=== PATIENT | male | born 1950 | race Caucasian/White ===

== ENCOUNTER 2016-11-01 10:53 | Emergency (ER) | payer SELFPAY | END 2016-11-01 15:47 | disposition left against medical advice (07) | LOC: EDBD 10:53 → D.ER 10:53 → D.ICU 14:20 → D.ER 14:20 | DX: R56.9 Unspecified convulsions (principal); I45.10 Unspecified right bundle-branch block; I44.60 Unspecified fascicular block ==

== ENCOUNTER 2017-11-16 11:05 | Emergency (ER) | payer SELFPAY ==
[~2017-11-16] VITALS: Ht 188 cm; Wt 122.7 kg
[2017-11-16 11:08] VITALS: Ht 188 cm; Wt 122.7 kg
[2017-11-16] MEDS ORDERED: LEVOTHYROXINE75 MCG PO (11:22)
[2017-11-16] MEDS ORDERED: CELEXA20 MG PO (11:24)
[2017-11-16] MEDS ORDERED: NIFEDIPINE ER 60 MG PO (11:24)
[2017-11-16] MEDS ORDERED: EPITOL200 MG PO (11:24)
[2017-11-16] MEDS ORDERED: K-DUR20 MEQ PO (11:24)
[2017-11-16] MEDS ORDERED: FUROSEMIDE40 MG PO (11:25)
[2017-11-16] MEDS ORDERED: METOPROLOL TART25 MG PO (11:25)
[2017-11-16] MEDS ORDERED: PRINIVIL20 MG PO (11:25)
[2017-11-16] MEDS ORDERED: KLONOPIN1 MG PO (11:26)
[2017-11-16] MEDS ORDERED: NIFEDIPINE60 MG/BOTT PO (11:26)
[2017-11-16] MEDS ORDERED: CALCIUM 250+D T1 TAB PO (11:27)
[2017-11-16 11:52] LABS: BASOPHILS 0.3 % (0-2); EOSINOPHILS 0.5 % (0-7); HEMATOCRIT 44.3 % (42.0-54.0); HEMOGLOBIN 14.9 g/dL (13.5-17.5); IMMATURE GRANULOCYTES 0.3 % (0-5); LYMPHOCYTES 3.5 % (15-50); MCH 31.2 pg (26.0-34.0); MCHC 33.6 g/dL (31.0-37.0); MCV 92.7 fL (80.0-100.0); MEAN PLATELET VOLUME 10.8 fL (7.4-10.4); MONOCYTES 7.1 % (2-11); NEUTROPHILS 88.3 % (40-80); PLATELET COUNT 205 10x3/uL (130-400); RBC 4.78 10x6/uL (4.20-6.10); RDW 14.3 % (11.5-14.5); WBC 12.6 10x3/uL (4.8-10.8)
[2017-11-16 12:07] LABS: ALBUMIN 3.1 g/dL (3.4-5.0); ANION GAP 19.7 mmol/L (8-16); BILIRUBIN - TOTAL 0.27 mg/dL (0.2-1.3); CALCIUM 9.1 mg/dL (8.5-10.1); CARBAMAZEPINE (TEGRETOL) 3.5 ug/mL (4.0-12.0); CARBON DIOXIDE 18.7 mmol/L (21.0-32.0); MAGNESIUM - SERUM 2.2 mg/dL (1.8-2.4); POTASSIUM - SERUM 3.4 mmol/L (3.5-5.1); PROTEIN - SERUM 6.2 g/dL (6.4-8.2)
[2017-11-16 12:15] LABS: APPEARANCE CLEAR (CLEAR); BILIRUBIN NEGATIVE (NEGATIVE); COLOR YELLOW (YELLOW); EPITHELIAL CELLS OCC /hpf (0-5); GLUCOSE NEGATIVE (NEGATIVE); KETONE NEGATIVE (NEGATIVE); NITRITE NEGATIVE (NEGATIVE); PROTEIN NEGATIVE (NEGATIVE); RED CELLS - URINE OCC /hpf (0-5); UROBILINOGEN NORMAL (NORMAL); WHITE CELLS - URINE OCC /hpf (0-5)
[2017-11-16 12:18] LABS: UDS - AMPHET NEGATIVE QUAL (NEGATIVE); UDS - BARB NEGATIVE QUAL (NEGATIVE); UDS - BENZO POSITIVE QUAL (NEGATIVE); UDS - COCAINE NEGATIVE QUAL (NEGATIVE); UDS - OPIATE NEGATIVE QUAL (NEGATIVE); UDS - PCP NEGATIVE QUAL (NEGATIVE); UDS - THC NEGATIVE QUAL (NEGATIVE)
[2017-11-16 13:29] VITALS: BP 175/71
== END 2017-11-16 13:30 | disposition home or self-care (01) ==
LOC: D.ER 11:05
PROVIDERS: Family Medicine
DX: R41.82 Altered mental status, unspecified (principal); I12.9 Hypertensive chronic kidney disease with stage 1 through stage 4 chronic kidney disease, or unspecified chronic kidney disease; N18.9 Chronic kidney disease, unspecified; Z91.14 Patient's other noncompliance with medication regimen; G40.909 Epilepsy, unspecified, not intractable, without status epilepticus; E07.9 Disorder of thyroid, unspecified; F17.200 Nicotine dependence, unspecified, uncomplicated

== ENCOUNTER 2018-03-29 14:30 | Inpatient (IN) | payer MEDICARE, OTHER ==
[~2018-03-29] VITALS: Ht 182.9 cm; Wt 120.9 kg
[~2018-03-29 14:30] MED LIST: CALCIUM 250+D T1 TAB PO; CELEXA20 MG PO; EPITOL200 MG PO; FUROSEMIDE40 MG PO; K-DUR20 MEQ PO; KLONOPIN1 MG PO; LEVOTHYROXINE75 MCG PO; METOPROLOL TART25 MG PO; NIFEDIPINE ER 60 MG PO; NIFEDIPINE60 MG/BOTT PO; PRINIVIL20 MG PO
[2018-03-29 15:48] VITALS: BP 174/84
[2018-03-29 16:13] LABS: BASOPHILS 0.2 % (0-2); EOSINOPHILS 0.2 % (0-7); HEMATOCRIT 45.9 % (42.0-54.0); HEMOGLOBIN 15.2 g/dL (13.5-17.5); IMMATURE GRANULOCYTES 0.2 % (0-5); LYMPHOCYTES 5.1 % (15-50); MCH 31.5 pg (26.0-34.0); MCHC 33.1 g/dL (31.0-37.0); MCV 95.2 fL (80.0-100.0); MEAN PLATELET VOLUME 10.9 fL (7.4-10.4); MONOCYTES 15.7 % (2-11); NEUTROPHILS 78.6 % (40-80); RBC 4.82 10x6/uL (4.20-6.10); RDW 14.7 % (11.5-14.5); WBC 8.7 10x3/uL (4.8-10.8)
[2018-03-29 16:17] LABS: PLATELET COUNT 150 10x3/uL (130-400)
[2018-03-29 16:26] LABS: ALBUMIN 3.1 g/dL (3.4-5.0); BILIRUBIN - TOTAL 0.25 mg/dL (0.2-1.3); CALCIUM 9.3 mg/dL (8.5-10.1); CARBON DIOXIDE 29.5 mmol/L (21.0-32.0); CREATININE - SERUM 2.4 mg/dL (0.6-1.3); POTASSIUM - SERUM 3.5 mmol/L (3.5-5.1); PROTEIN - SERUM 7.1 g/dL (6.4-8.2)
[2018-03-29 17:06] LABS: TROPONIN-I 0.111 ng/mL (0.000-0.060)
[2018-03-29 17:36] VITALS: BP 172/96
[2018-03-29 19:01] VITALS: BP 180/84
[2018-03-29 19:26] LABS: APPEARANCE CLEAR (CLEAR); BILIRUBIN NEGATIVE (NEGATIVE); COLOR YELLOW (YELLOW); GLUCOSE NEGATIVE (NEGATIVE); KETONE NEGATIVE (NEGATIVE); NITRITE NEGATIVE (NEGATIVE); PROTEIN 2+ mg/dL (NEGATIVE); SPECIFIC GRAVITY 1.015 (1.005-1.020); UROBILINOGEN NORMAL (NORMAL)
[2018-03-29 19:28] LABS: BACTERIA FEW /hpf (NONE SEEN); RED CELLS - URINE 0-5 /hpf (0-5); WHITE CELLS - URINE OCC /hpf (0-5)
[2018-03-29 21:02] VITALS: BP 175/78
[2018-03-29 22:32] VITALS: BMI 36.0
[2018-03-29] MEDS ORDERED: SODIUM BICARBO325 MG PO (22:40)
[2018-03-30 04:00] VITALS: BP 165/79
[2018-03-30 07:25] LABS: BASOPHILS 0.1 % (0-2); EOSINOPHILS 0.1 % (0-7); HEMATOCRIT 42.4 % (42.0-54.0); HEMOGLOBIN 14.2 g/dL (13.5-17.5); IMMATURE GRANULOCYTES 0.4 % (0-5); LYMPHOCYTES 7.1 % (15-50); MCH 31.7 pg (26.0-34.0); MCHC 33.5 g/dL (31.0-37.0); MCV 94.6 fL (80.0-100.0); MONOCYTES 14.5 % (2-11); NEUTROPHILS 77.8 % (40-80); PLATELET COUNT 148 10x3/uL (130-400); RBC 4.48 10x6/uL (4.20-6.10); RDW 14.7 % (11.5-14.5); WBC 7.5 10x3/uL (4.8-10.8)
[2018-03-30 07:57] LABS: ANION GAP 11.5 mmol/L (8-16); CARBON DIOXIDE 26.7 mmol/L (21.0-32.0); CREATININE - SERUM 1.8 mg/dL (0.6-1.3); POTASSIUM - SERUM 3.2 mmol/L (3.5-5.1)
[2018-03-30 08:05] LABS: TROPONIN-I 0.194 ng/mL (0.000-0.060)
[2018-03-30 09:03] VITALS: BP 152/95
[2018-03-30 20:00] VITALS: BP 139/76
[2018-03-31] VITALS: BP 169/87
[2018-03-31 04:00] VITALS: BP 154/93
[2018-03-31 07:55] VITALS: BP 126/81
[2018-03-31 08:05] LABS: ALBUMIN 2.4 g/dL (3.4-5.0); ANION GAP 15.4 mmol/L (8-16); BILIRUBIN - TOTAL 0.15 mg/dL (0.2-1.3); CALCIUM 7.5 mg/dL (8.5-10.1); CREATININE - SERUM 1.7 mg/dL (0.6-1.3); POTASSIUM - SERUM 3.4 mmol/L (3.5-5.1); PROTEIN - SERUM 5.7 g/dL (6.4-8.2)
[2018-03-31 10:49] LABS: BASOPHILS 0 % (0-2); EOSINOPHILS 0 % (0-7); HEMATOCRIT 42.5 % (42.0-54.0); IMMATURE GRANULOCYTES 0.4 % (0-5); MCH 31.7 pg (26.0-34.0); MCHC 32.9 g/dL (31.0-37.0); MCV 96.2 fL (80.0-100.0); MEAN PLATELET VOLUME 11.4 fL (7.4-10.4); NEUTROPHILS 85.6 % (40-80); PLATELET COUNT 138 10x3/uL (130-400); RBC 4.42 10x6/uL (4.20-6.10); RDW 14.6 % (11.5-14.5); WBC 7.3 10x3/uL (4.8-10.8)
[2018-03-31 12:17] VITALS: BP 131/76
[2018-03-31 16:02] VITALS: BP 128/78
[2018-03-31 20:00] VITALS: BP 171/84
[2018-04-01] VITALS: BP 159/89
[2018-04-01 04:00] VITALS: BP 161/82
[2018-04-01 07:24] LABS: BASOPHILS 0 % (0-2); EOSINOPHILS 0 % (0-7); HEMATOCRIT 44.8 % (42.0-54.0); HEMOGLOBIN 14.9 g/dL (13.5-17.5); IMMATURE GRANULOCYTES 0.6 % (0-5); LYMPHOCYTES 8.2 % (15-50); MCH 31.8 pg (26.0-34.0); MCHC 33.3 g/dL (31.0-37.0); MCV 95.5 fL (80.0-100.0); MEAN PLATELET VOLUME 11.9 fL (7.4-10.4); MONOCYTES 7.8 % (2-11); NEUTROPHILS 83.4 % (40-80); PLATELET COUNT 149 10x3/uL (130-400); RBC 4.69 10x6/uL (4.20-6.10); RDW 14.9 % (11.5-14.5); WBC 7.1 10x3/uL (4.8-10.8)
[2018-04-01 07:34] VITALS: BP 164/85
[2018-04-01 07:48] LABS: ALBUMIN 2.5 g/dL (3.4-5.0); ANION GAP 14.9 mmol/L (8-16); BILIRUBIN - TOTAL 0.17 mg/dL (0.2-1.3); CALCIUM 7.3 mg/dL (8.5-10.1); CARBON DIOXIDE 22.5 mmol/L (21.0-32.0); CREATININE - SERUM 1.6 mg/dL (0.6-1.3); MAGNESIUM - SERUM 2.2 mg/dL (1.8-2.4); POTASSIUM - SERUM 3.4 mmol/L (3.5-5.1); PROTEIN - SERUM 5.9 g/dL (6.4-8.2)
[2018-04-01 12:23] VITALS: BP 140/86
[2018-04-01 16:03] VITALS: BP 140/80
[2018-04-01 20:00] VITALS: BP 135/84
[2018-04-02] VITALS: BP 143/69
[2018-04-02 04:00] VITALS: BP 171/85
[2018-04-02 07:16] LABS: ALBUMIN 2.3 g/dL (3.4-5.0); BILIRUBIN - TOTAL 0.14 mg/dL (0.2-1.3); CARBON DIOXIDE 20.4 mmol/L (21.0-32.0); CREATININE - SERUM 1.5 mg/dL (0.6-1.3); PROTEIN - SERUM 5.4 g/dL (6.4-8.2)
[2018-04-02 07:17] LABS: ANION GAP 15.2 mmol/L (8-16); POTASSIUM - SERUM 3.6 mmol/L (3.5-5.1)
[2018-04-02 07:18] LABS: CALCIUM 6.7 mg/dL (8.5-10.1)
[2018-04-02 07:24] LABS: BASOPHILS 0.1 % (0-2); EOSINOPHILS 0 % (0-7); HEMATOCRIT 43.6 % (42.0-54.0); HEMOGLOBIN 14.3 g/dL (13.5-17.5); IMMATURE GRANULOCYTES 1.1 % (0-5); LYMPHOCYTES 10.1 % (15-50); MCH 31.1 pg (26.0-34.0); MCHC 32.8 g/dL (31.0-37.0); MCV 94.8 fL (80.0-100.0); MEAN PLATELET VOLUME 11.5 fL (7.4-10.4); NEUTROPHILS 77.7 % (40-80); PLATELET COUNT 144 10x3/uL (130-400); RDW 15.1 % (11.5-14.5); WBC 7.2 10x3/uL (4.8-10.8)
[2018-04-02 07:53] VITALS: BP 173/84
[2018-04-02 10:52] VITALS: Ht 182.9 cm; Wt 120.9 kg
[2018-04-02 11:32] VITALS: BP 165/84
[2018-04-02 16:04] VITALS: BP 175/91
[2018-04-02] MEDS ORDERED: AMOX TR-K CLV 21 TAB PO (16:52)
[2018-04-02] MEDS ORDERED: FLORAJEN3 CAPS460 MG PO (16:53)
[2018-04-02] MEDS ORDERED: TAMIFLU75 MG PO (16:56)
[2018-04-03] MEDS ORDERED: AUGMENTIN 875-11 TAB PO (12:52)
--- NOTE | 2018-04-07 11:18 | EC ---
PATIENT:CATIA SALDANA DATE OF SERVICE: 03/29/18 SEX: M MEDICAL RECORD: [id number] DATE OF : 54 LOCATION:D.M3 D.120 AGE OF PATIENT: 67 ADMISSION DATE: 03/29/18 REFERRING PHYSICIAN: INTERPRETING PHYSICIAN: CATALINO JACINTO MD ECHOCARDIOGRAM REPORT ECHO CHARGES 4 ECHO COMPLETE Date: 03/31/18 CLINICAL DIAGNOSIS: DYSPNEA ECHOCARDIOGRAPHIC MEASUREMENTS (adult normal given) AC root (d.<3.7cm) 3.9 cm LV Septum d (<1.2 cm> 1.7 cm Valve Excursion 2.4 cm LV Septum (systole) 2.1 cm Left Atria (s.<4.0cm> 4.3 cm LVPW d(<1.2cm) 1.7 cm RV (d.<2.3cm) 4.4 cm LVPW (sytole) 2.1 cm LV diastole(<5.6CM) 5.4 cm MV E-F(>70mm/sec) cm LV systole 3.5 cm LVOT Diameter 2.3 cm MV exc.(>10mm) 1.4 cm Est.ejection fraction (50-75%) % DOPPLER: LVIT cm/sec A 77.0 cm/sec E 89.0 cm/sec LA cm/sec RVSP 21 mmHg LVOT 120 cm/sec AOP1/2T m/s Asc. Ao 143 cm/sec RVOT 88 cm/sec RA cm/sec PA 149 cm/sec AV Gradient Peak 8.19 mmHg AV Mean 4.29 mmHg AV Area 3.8 cm MV Gradient Peak 5.60 mmHg MV Mean 1.86 mmHg MV Area cm COMMENTS: Quality Manager: Krissy REYEZ Building Performance Specialist: 1 Dr. Jacinto TAPE# PACS Pericardial Effusion N DATE OF SERVICE: 03/31/2018 ECHOCARDIOGRAM DATE OF SERVICE: 03/31/2018 FINDINGS: 1. Left ventricular chamber size is within normal limits. Left ventricular systolic function is normal. Overall ejection fraction is estimated at 60%. 2. Left atrium, right atrium, and right ventricle chamber sizes are mildly ECHOCARDIOGRAM REPORT [id number] CATIA SALDANA dilated. 3. Valvular structures have normal structure and motion. 4. Doppler interrogation reveals trace tricuspid regurgitation. No other valvular insufficiency or stenosis. Pulmonary systolic pressure is normal estimated at 21 mmHg. 5. No evidence of pericardial effusion or left ventricular thrombus. TRANSINT:[id number] Voice Confirmation ID: [id number] DOCUMENT ID: [id number] CATALINO JACINTO MD at 1118 CC: [id number] DICTATION DATE: 03/31/18 1156 MARKETING FINANCE SPECIALIST: 03/31/18 1230 DIS IN 04/02/18 [place] [id number] [place] [id number]
== END 2018-04-02 18:29 | disposition home or self-care (01) | DRG 190 ==
LOC: D.ER 14:30 → D.EDHOLD 19:12 → D.M3 19:12
PROVIDERS: Family Medicine; ADMIT Internal Medicine Nephrology
DX: J44.0 Chronic obstructive pulmonary disease with (acute) lower respiratory infection (principal); J10.00 Influenza due to other identified influenza virus with unspecified type of pneumonia; N17.9 Acute kidney failure, unspecified; J44.1 Chronic obstructive pulmonary disease with (acute) exacerbation; I10 Essential (primary) hypertension; G40.909 Epilepsy, unspecified, not intractable, without status epilepticus; E03.9 Hypothyroidism, unspecified; E86.9 Volume depletion, unspecified; J20.9 Acute bronchitis, unspecified; Z72.0 Tobacco use

== ENCOUNTER → 2019-10-20 | Emergency (ER) | payer MEDICARE, OTHER ==
[2018-04-02 10:52] VITALS: BMI 35.9
[~2019-10-20] MED LIST changes: +AMOX TR-K CLV 21 TAB PO; +AUGMENTIN 875-11 TAB PO; +FLORAJEN3 CAPS460 MG PO; +SODIUM BICARBO325 MG PO; +TAMIFLU75 MG PO
== END ==
LOC: D.ER 19:49
DX: R56.9 Unspecified convulsions (principal)